=== PATIENT | female | born 1960 | race Asian ===

== ENCOUNTER 2020-03-25 19:40 | Inpatient (IN) | payer OTHER ==
[~2020-03-25] VITALS: Ht 175.3 cm; Wt 134.7 kg
[~2020-03-25 19:40] MED LIST: ACID CONTROL10 MG PO; AMLODIPINE BESYLATE PO; CHOL100034 PO; DIVALPROEX500 MG PO; DOXYCYCLINE100 MG PO; FERREX 150150 MG PO; FLUP10TA3 PO; FOLI1TAB26 PO; HALO5INJ3 IM; LEVEMIR FL100 UNIT/M SC; MULTTAB52 PO; OLANZAPINE10 M2 PO; PERCOCET1 TA3 PO; TYLENOL325 MG PO
[2020-03-25 20:35] LABS: PLATELET COUNT 130 K/uL (152-353)
[2020-03-25 20:46] VITALS: BP 134/87; TEMP 102.1
[2020-03-25 21:02] LABS: POTASSIUM 3.8 mmol/L (3.6-5.2)
[2020-03-26] VITALS (7 sets, daily range): BP systolic 120–164; BP diastolic 52–83; TEMP 98.3–102.2; Ht 175.3 cm; Wt 134.7 kg
[2020-03-26 09:52] LABS: POTASSIUM 3.6 mmol/L (3.6-5.2)
[2020-03-26 10:02] LABS: PLATELET COUNT 112 K/uL (152-353)
[2020-03-27] VITALS: BP 109/65; BP 130/80; TEMP 98.1; TEMP 99.7
[2020-03-27 04:00] VITALS: BP 113/71; TEMP 98.9
[2020-03-27 04:00] LABS: PLATELET COUNT 115 K/uL (152-353)
[2020-03-27 04:41] LABS: POTASSIUM 4.1 mmol/L (3.6-5.2)
[2020-03-27 08:00] VITALS: BP 121/51; TEMP 102.6
[2020-03-27 12:00] VITALS: BP 135/69; TEMP 100.7
[2020-03-27 16:00] VITALS: BP 152/71; TEMP 99.3
[2020-03-27 20:00] VITALS: BP 146/64; TEMP 98.8
[2020-03-28] VITALS: BP 149/84; TEMP 98.9
[2020-03-28 04:00] VITALS: BP 125/76; TEMP 98.2
[2020-03-28 08:00] VITALS: BP 145/76; TEMP 100.4
[2020-03-28 12:00] VITALS: BP 128/64; TEMP 99.3
[2020-03-28] MEDS ORDERED: FERROUS SULF325 M1 PO (13:29)
[2020-03-28] MEDS ORDERED: TRULICITY0.75 MG/0. SC (13:31)
[2020-03-28] MEDS ORDERED: FLUP10TA3 PO (13:33)
[2020-03-28] MEDS ORDERED: GLIP10TA55 PO (13:34)
[2020-03-28] MEDS ORDERED: VITAMIN C 500 M1 TAB PO (13:37)
[2020-03-28] MEDS ORDERED: NOVOLOG100 UNIT/M SC (13:39)
[2020-03-28] MEDS ORDERED: BISA10SU8 RE (13:40)
[2020-03-28] MEDS ORDERED: MILK OF MAGNESI1 SUS PO (13:41)
[2020-03-28] MEDS ORDERED: GENTLE LAXAT5 MG PO (13:43)
[2020-03-28] MEDS ORDERED: ALUMSUS6 PO (13:44)
[2020-03-28] MEDS ORDERED: ONDA4TAB3 PO (13:45)
[2020-03-28] MEDS ORDERED: TUSSIN100 MG/5 M PO (13:46)
[2020-03-28 16:00] VITALS: BP 178/88; TEMP 98.5
[2020-03-28 16:56] LABS: PLATELET COUNT 172 K/uL (152-353)
[2020-03-28 17:45] LABS: POTASSIUM 4.9 mmol/L (3.6-5.2)
[2020-03-28 20:00] VITALS: BP 136/70; TEMP 98.5
[2020-03-29] VITALS (7 sets, daily range): BP systolic 109–162; BP diastolic 53–83; TEMP 98.1–100.2
[2020-03-29 05:50] LABS: PLATELET COUNT 191 K/uL (152-353)
[2020-03-29 05:59] LABS: POTASSIUM 4.6 mmol/L (3.6-5.2)
[2020-03-30 03:44] VITALS: BP 128/69; BP 141/67; TEMP 98.3; TEMP 98.8
[2020-03-30 07:00] LABS: PLATELET COUNT 211 K/uL (152-353)
[2020-03-30 07:16] LABS: POTASSIUM 4.5 mmol/L (3.6-5.2)
[2020-03-30 08:00] VITALS: BP 162/79; TEMP 97.4
[2020-03-30 12:00] VITALS: BP 169/86; TEMP 97.3
[2020-03-30 16:00] VITALS: BP 169/85; TEMP 97.9
[2020-03-30 20:00] VITALS: BP 190/92; TEMP 98.4
[2020-03-31 00:17] VITALS: BP 162/81; TEMP 99
[2020-03-31 03:55] VITALS: BP 159/86; TEMP 98.6
[2020-03-31 07:00] LABS: POTASSIUM 4.4 mmol/L (3.6-5.2)
[2020-03-31 07:08] LABS: PLATELET COUNT 278 K/uL (152-353)
[2020-03-31 07:51] VITALS: BP 136/85; TEMP 100.1
[2020-03-31 12:00] VITALS: BP 157/70; TEMP 97.4
[2020-03-31 16:00] VITALS: BP 142/90; TEMP 98.3
[2020-03-31 20:00] VITALS: BP 167/78; TEMP 98.3
[2020-04-01] VITALS (7 sets, daily range): BP systolic 122–179; BP diastolic 58–96; TEMP 97.3–99.8
[2020-04-01 05:17] LABS: PLATELET COUNT 216 K/uL (152-353)
[2020-04-01 05:23] LABS: POTASSIUM 5.1 mmol/L (3.6-5.2)
[2020-04-02 04:00] VITALS: BP 179/86; TEMP 98.6
[2020-04-02 05:00] LABS: POTASSIUM 4.2 mmol/L (3.6-5.2)
[2020-04-02 08:00] VITALS: BP 146/61; TEMP 97.4
[2020-04-02 09:55] LABS: PLATELET COUNT 324 K/uL (152-353)
[2020-04-02 12:00] VITALS: BP 132/70; TEMP 98.1
[2020-04-02 16:00] VITALS: BP 172/87; TEMP 98.8
[2020-04-02 20:00] VITALS: BP 164/75; TEMP 98.7
[2020-04-03 00:11] VITALS: BP 190/92; TEMP 98.3
[2020-04-03 04:00] VITALS: BP 112/52; TEMP 97.9
[2020-04-03 05:53] LABS: POTASSIUM 4.6 mmol/L (3.6-5.2)
[2020-04-03 06:17] LABS: PLATELET COUNT 129 K/uL (152-353)
[2020-04-03 08:00] VITALS: BP 191/86; TEMP 97.9
[2020-04-03 12:00] VITALS: BP 184/77; TEMP 98.1
[2020-04-03 16:00] VITALS: BP 187/63; TEMP 98.5
[2020-04-03 20:19] VITALS: BP 170/72; TEMP 97.4
[2020-04-04 06:22] LABS: PLATELET COUNT 325 K/uL (152-353)
[2020-04-04 08:00] VITALS: BP 151/69; TEMP 97.8
[2020-04-04 12:00] VITALS: BP 158/86; BP 163/62; TEMP 98.4; TEMP 99.5
[2020-04-04 16:00] VITALS: BP 137/77; TEMP 99.1
[2020-04-04 20:00] VITALS: BP 166/74; TEMP 98.1
[2020-04-04 23:53] VITALS: BP 148/68; TEMP 97.1
[2020-04-05 04:19] VITALS: BP 159/68; TEMP 98.3
[2020-04-05 08:06] VITALS: BP 157/7; TEMP 99.3
[2020-04-05 10:07] LABS: PLATELET COUNT 288 K/uL (152-353)
[2020-04-05 10:28] LABS: POTASSIUM 4.3 mmol/L (3.6-5.2)
[2020-04-05 12:00] VITALS: BP 152/73; TEMP 98.1
[2020-04-05 16:00] VITALS: BP 177/88; TEMP 98.5
[2020-04-05 20:14] VITALS: BP 127/78; TEMP 98.8
[2020-04-06] VITALS: BP 171/81; TEMP 98.3
[2020-04-06 03:48] VITALS: BP 150/70; TEMP 98.3
[2020-04-06 08:00] VITALS: BP 160/76; TEMP 98.3
[2020-04-06] MEDS ORDERED: INSU300I SC (11:01)
[2020-04-06] MEDS ORDERED: VALPROIC ACID10 ML PO (11:02)
[2020-04-06 12:00] VITALS: BP 155/65; TEMP 98.2
== END 2020-04-06 14:30 | DRG 177 ==
LOC: MED/SURG 19:40
PROVIDERS: Internal Medicine Endocrinology, Diabetes & Metabolism; ADMIT Internal Medicine
DX: U07.1 COVID-19 (principal); J96.01 Acute respiratory failure with hypoxia; J18.8 Other pneumonia, unspecified organism; N17.8 Other acute kidney failure; F20.0 Paranoid schizophrenia; K21.9 Gastro-esophageal reflux disease without esophagitis; D63.8 Anemia in other chronic diseases classified elsewhere; E11.22 Type 2 diabetes mellitus with diabetic chronic kidney disease; I12.9 Hypertensive chronic kidney disease with stage 1 through stage 4 chronic kidney disease, or unspecified chronic kidney disease; N18.3 Chronic kidney disease, stage 3 (moderate); E11.649 Type 2 diabetes mellitus with hypoglycemia without coma; E87.6 Hypokalemia
CPT/HCPCS: 36415; 80053; 81000; 82728; 82947; 83605; 83735; 85007; 85027; 85379; 85651; 87040; 87088; 87324; 87449; 87635; 94667; 94668; 94760; J0360; J0456; J0696; J1100; J1650; J1815; J2060; J3490; J7060; U0003